=== PATIENT | female | born 1990 ===

== ENCOUNTER 2023-08-15 13:49 | Outpatient (AMB) | payer OTHER, SELFPAY ==
[2023-08-15 13:50] VITALS: BP 122/70; PULSE 73; O2SAT 97; BMI 27.2
--- NOTE | 2023-08-15 13:50 | MHC.PC.OV ---
Vital Signs 08/15/23 13:50 Height 5 ft 1 in Weight 144 lb BMI 27.2 BP 122/70 Blood Pressure Location Lt brachial Position Sitting Pulse 73 Pulse Source Pulse Oximeter Pulse Oximetry (%) 97 Oxygen Delivery Method Room Air Intake Visit Reasons: Physical exam, transfer from Dr. San Project Control Analyst Required: No Allergies No Known Allergies Allergy (Verified 08/15/23 14:04) Medication List - Last Reconciled 08/15/23 by JOLYNN Warner No Known Home Meds Tobacco use date assessed: 08/15/23 Dental Screening Dental Screen Date: 08/15/23 Did you have a dental visit in the last 12 months?: Yes Did you have a dental problem in the last 6 months where you did not have access to dental care?: No Was dental information given to patient?: Patient has dentist HPI Physical exam, transfer from Dr. San HPI Details Patient is a 33-year-old female who presents today for physical exam. Today we discussed patient's need for Pap smear, will refer. Patient also reports Nexplanon for the past 7 years, will refer to Gynecology for Nexplanon removal. Dental exam up-to-date. Does not see eye doctor, denies eye issues. Tdap in 2015. Patient is due for blood work. In addition, patient reports intermittent chronic low back pains that radiate to her right lower extremity for the past 14 years, back pain started after having spinal tap when she was - at the time did have meningitis. Also reports tingling in her right leg. Pain is worse with activity. Pain exacerbated about 5 days ago, reports taking [id number] ibuprofen intermittently with some improvement. No changes in bowel/bladder. Reports having physical therapy and chiropractor in the past with no improvement. Would like to hold off on pain management referral at this time. 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 Migraine with aura Irregular menstrual cycle Iron deficiency anemia Viral meningitis Lower back pain Surgical History No history of previous surgery Family History Father HTN (hypertension) Arthritis Asthma Mother HTN (hypertension) Migraine Diabetes mellitus Maternal Grandfather Liver cancer Maternal Aunt Breast cancer Social History Housing: Apartment Alcohol intake: never Patient Tobacco Use Status: Never used Tobacco Second Hand Smoke Exposure: No service: No Current occupational status: employed Gender identity: Female Cognitive needs: No Hearing needs: No Vision needs: No Female Reproductive History Menstrual Age of Menarche: 10 Questionnaire PHQ-9 Over the last 2 weeks, how often have you been bothered by any of the following problems? 1. Little interest or pleasure in doing things: not at all 2. Feeling down, depressed, or hopeless: not at all 3. Trouble falling or staying asleep, or sleeping too much: not at all 4. Feeling tired or having little energy: not at all 5. Poor appetite or overeating: not at all 6. Feeling bad about yourself - or that you are a failure or have let yourself or your family down: not at all 7. Trouble concentrating on things, such as reading the newspaper or watching television: not at all 8. Moving or speaking so slowly that other people could have noticed. Or the opposite - being so fidgety or restless that you have been moving around a lot more than usual: not at all 9. Thoughts that you would be better off or of hurting yourself in some way: not at all Total score: 0 Depression Screening Interpretation: Negative Depression Screening Done: Yes 78169 - PHQ-9 Billing: Yes Source: Developed by Drs. Fredy Cruz, Mariaa Chapman, Ezequiel Sadler and colleagues, with an educational dee from [employer] 1. Thrive Questionnaire Date Thrive assessed: 08/15/23 I am a: Patient What is your living situation today?: I have a steady place to live Within the past 12 months, did the food you bought not last and you didn't have the money to get more?: Never true Within the past 12 months, did you worry whether your food would run out before you got money to buy more?: Never true Do you have trouble paying for medicines?: No Do you have trouble getting transportation to medical appointments?: No Do you have trouble paying your heating and electricity bill?: No Do you have trouble taking care of your child, family member or friend?: No Do you have trouble with day-to-day activities such as bathing, preparing meals, shopping, managing finances, etc.?: No Are you currently unemployed and looking for a job?: No Are you interested in more education?: No Currently or been in a relationship where the following occur: no concerns reported AUDIT C Alcohol Use Questionnaire (AUDIT-C) 1. How often do you have a drink containing alcohol?: Never Total Score: 0 Score Reviewed/Action Taken: No EMMA-7 AMB Questionnaire EMMA-7 Date EMMA - 7 assessed: 08/15/23 Feeling nervous, anxious, or on edge: 0 = Not at all Not being able to stop or control worryin = Not at all Worrying too much about different things: 0 = Not at all Trouble relaxin = Not at all Being so restless that it is hard to sit still: 0 = Not at all Becoming easily annoyed or irritable: 0 = Not at all Feeling afraid as if something awful might happen: 0 = Not at all Total EMMA-7 score (0-4 normal; 5-9 mild; 10-14 moderate; 15-21 severe): 0 Source: Developed by Drs. Fredy Cruz, Mariaa Chapman, Ezequiel Sadler and colleagues, with an educational dee from [employer] 1. EMMA-7 Assessment Billing EMMA-7 Assessment Tool: EMMA-7 Assessment 14199 Review of Systems Const Denies body aches, Denies chills, Denies fever(s) and Denies headache(s) Eyes Denies change in vision ENT Denies dizziness, Denies otalgia, Denies headache(s), Denies nasal discharge, Denies sinus pain and Denies sore throat Card Denies chest pain, Denies edema, Denies lightheadedness and Denies dyspnea Resp Denies cough, Denies dyspnea and Denies wheezing GI Denies abdominal pain, Denies constipation, Denies diarrhea, Denies nausea and Denies vomiting Denies dysuria Musc Reports back pain, Denies myalgias, Denies numbness and Reports tingling Skin/Breast Denies rash Neuro Denies dizziness, Denies headache(s), Denies numbness and Reports tingling Aller/Immun Denies wheezing Physical exam (Primary Care) Vital Signs: Last Vital Signs Pulse 73 08/15/23 13:50 BP 122/70 08/15/23 13:50 Pulse Ox 97 08/15/23 13:50 Oxygen Delivery Method Room Air 08/15/23 13:50 BMI result Body Mass Index 27.2 Tobacco/Smoking Status: Tobacco use Status Tobacco use date assessed 08/15/23 08/15/23 13:53 Patient Tobacco Use Status Never used Tobacco 08/15/23 13:53 PHQ-9: PHQ-9 Score PHQ-9: Total score 0 08/15/23 13:53 Depression Screening Interpretation: Negative Thrive Assessment: Date of Thrive Assessment Date Thrive assessed 08/15/23 08/15/23 13:53 Currently or been in a relationship where the following occur: no concerns reported Const General: cooperative and no acute distress Orientation/consciousness: patient oriented x3 HENMT Head: Yes normocephalic and Yes atraumatic Ears: TM's normal bilaterally Face and sinus: Yes sinuses nontender Mouth: oropharynx normal and moist mucous membranes Throat: Yes posterior oropharynx normal Eyes General: appearance normal, both eyes and all related structures Pupils: Equal, round and reactive pupils present EOM: EOMs intact bilaterally Neck Neck: Yes normal visual inspection, Yes full ROM and Yes no lymphadenopathy Thyroid: Thyroid normal Resp Effort & Inspection: normal respiratory effort and able to speak in complete sentences Auscultation: clear to auscultation bilaterally, no crackles, no rales, no rhonchi and no wheezes Cardio Rate: regular rate Rhythm: regular rhythm Heart sounds: S1 normal heart sound present, S2 normal heart sound present and no murmurs GI Palpation (GI): Soft to palpation, not firm, nontender, no guarding, not rigid and no hepatosplenomegaly Auscultation: normal bowel sounds General: No CVA tenderness Back/Spine/Pelvis Back: No CVA tenderness Thoracic/Lumbar Spine: straight leg raise negative bilaterally, pain with thoraco-lumbar ROM, paraspinal muscle tenderness (Right lumbar aspect), No thoracic spinal tenderness and lumbar spinal tenderness Skin General skin exam: no rashes or lesions noted Neuro General: patient oriented x3 Cranial nerves: Yes Equal, round and reactive pupils present Gait exam (Neuro): Normal gait present Extrem General: Yes full ROM and No edema Office Procedures Flu Questionnaire Does the patient have a severe egg allergy?: No Does the patient have severe life threatening allergies?: No Does the patient have a fever or illness today?: No Has the patient ever had Guillain-Rockledge Syndrome?: No Has the patient ever had any past reaction to a flu shot?: No Immunizations flu vacc [id number] 6mos up(PF) 60 mcg(15 mcgx4)/0.5 mL IM syringe Performing Provider: JOLYNN Warner Performing Location[facility] Administered by: MARKUS Rojas on 08/15/23 13:57 Dose Route Admin Location Dispensed Lot Number Expiration Date NDC Shift Superintendent 0.5 mL IM Left Deltoid 0.5 mL [id number] 04/19/24 [id number] [employer] VIS Given Date VIS Provided VIS Publication Date 08/15/23 Single Vaccine 21 Eligibility Eligibility Date Funding Source Not [facility] Eligible 08/15/23 Private Assessment and Plan Assessment & Plan (1) Nexplanon in place: Code(s): Z97.5 - Presence of (intrauterine) contraceptive device Plan: Gynecology referral (2) Lower back pain: Code(s): M54.5 - Low back pain Plan: Will obtain lumbar spine x-ray Patient is not interested in physical therapy referral due to no improvement in the past Patient would like to hold off on pain management referral Will provide patient with ibuprofen 600 mg every 8 hours as needed Start tizanidine 2 mg every 8 hours p.r.n.-educated about drowsiness Encouraged heat/cold packs p.r.n. Signs and symptoms reviewed when to notify provider or seek medical attention (3) Cervical cancer screening: Code(s): Z12.4 - Encounter for screening for malignant neoplasm of cervix (4) Physical exam: Code(s): Z00.00 - Encounter for general adult medical examination without abnormal findings Plan: Repeat in 1 year Orders: Orders Vitamin D 25-OH Total Today Z00.00 - Encounter for general adult medical examination without abnormal findings TSH reflex Free T4 Today Z00.00 - Encounter for general adult medical examination without abnormal findings Influenza [id number] Immunization Today Z23 - Encounter for immunization Comprehensive Met. 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
== END 2023-08-15 14:22 | disposition home or self-care (01) ==
PROVIDERS: PCP Nurse Practitioner Family; Visit Provider Nurse Practitioner Family
DX: Z00.00 Encounter for general adult medical examination without abnormal findings (principal); M54.50 Low back pain, unspecified; Z23 Encounter for immunization; Z97.5 Presence of (intrauterine) contraceptive device
CPT/HCPCS: 90471; 90686; 99395

== ENCOUNTER 2023-10-06 08:27 | Emergency (ER) | payer OTHER, SELFPAY ==
--- NOTE | 2023-10-06 | ECG_ITS ---
Test Reason : pain/dyspnea Blood Pressure : / mmHG Vent. Rate : 052 BPM Atrial Rate : 052 BPM P-R Int : 148 ms QRS Dur : 088 ms QT Int : 416 ms P-R-T Axes : 048 052 030 degrees QTc Int : 386 ms Sinus bradycardia with sinus arrhythmia Otherwise normal ECG No previous ECGs available Referred By: Generic ED Physician Electronically Signed By:Josue Ramírez
--- NOTE | ~2023-10-06 | XR_ITS ---
EXAMINATION: XR CHEST CLINICAL INFORMATION: Cough. COMPARISON: None available. TECHNIQUE: Frontal view of the chest was obtained. FINDINGS: The lungs are well-expanded and clear. The heart size and pulmonary vascularity is normal. No gross bony abnormality seen. There is minimal scoliosis dorsal spine. XR/XR chest 1V IMPRESSION: No acute cardiopulmonary process seen.
[2023-10-06 08:34] VITALS: BP 116/56; PULSE 54; RESP 16; TEMP 36.9; O2SAT 97; BMI 27.4
[2023-10-06 09:47] LABS: IDNOW Serial# 08D9AD1C; Strep A Nucleic Acid Negative (Negative)
[2023-10-06 10:15] LABS: Influenza A PCR NEGATIVE (Negative); Influenza B PCR NEGATIVE (Negative); Resp Syncy Virus RNA Qual PCR NEGATIVE (Negative); SARS COV2 PCR INHOUSE NEGATIVE (Negative)
[2023-10-06] MEDS: dexAMETHasone sod phosphate 4 MG/ML VIAL 6 MG IVPUSH (11:21)
--- NOTE | 2023-10-06 11:26 | ED.URI ---
HPI - URI/Sore Throat General Chief Complaint: Upper Respiratory Symptoms Stated Complaint: Diff breathing/Loss of appetite Time Seen by Provider: 10/06/23 09:19 Source: patient Mode of arrival: ambulatory Limitations: no limitations History of Present Illness HPI Narrative: 33-year-old female with no significant pmhx presents to the ED today with a complaint of nasal congestion, cough, sore throat x1 week. Reports cough is productive of yellow-green sputum endorses post-tussive vomiting. Reports pain on swallowing however no difficulty swallowing States that she has been taking Tylenol ibuprofen without relief. No documented fever. Denies sick contacts. Denies fever, chills, headache, ear or eye pain, chest pain, shortness of breath, wheezing, anorexia, nausea or vomiting, rash, abdominal or flank pain. Denies recent travel. Related Data Previous Rx's Medication Instructions Recorded ibuprofen 600 mg tablet 600 mg PO Q8H PRN pain #30 tabs 08/15/23 tizanidine 2 mg tablet 2 mg PO Q8H PRN muscle spasticity 08/15/23 #14 tabs azithromycin 250 mg tablet See Rx Instructions PO .COMPLEX #6 10/06/23 (Zithromax Z-El) tabs benzonatate 100 mg capsule 100 mg PO BID PRN cough #14 caps 10/06/23 prednisone 20 mg tablet 20 mg PO DAILY 5 days #5 tabs 10/06/23 Allergies Allergy/AdvReac Type Severity Reaction Status Date / Time No Known Allergies Allergy Verified 10/06/23 08:33 Review of Systems Review of Systems: Constitutional: No fever, chills, fatigue, night sweats, weight changes ENT/Mouth: No ear pain, hearing loss, +nasal congestion, No sinus pain, rhinorrhea, +sore throat Eyes: No eye pain, swelling, redness, vision changes, discharge Cardio: No chest pain, palpitations, MATHIS, orthopnea, peripheral edema Pulm: No SOB, +cough, +sputum, No wheezing, dyspnea, hemoptysis GI: No nausea, vomiting, hematemesis, abdominal pain, diarrhea, constipation, hematochezia, melena : No irregular bleeding, dysuria, frequency, urgency, hesitancy, hematuria, flank pain, urinary flow changes, urinary incontinence or retention MSK: No back pain, neck pain, joint pain, myalgias Skin: No lesions, rashes Neuro: No weakness, numbness, paresthesias, LOC, dizziness, headache All other systems reviewed and are negative. FORMERLY [facility], [facility] Past Medical History Attestation statement: The following information was validated with the patient. 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 Migraine with aura Irregular menstrual cycle Iron deficiency anemia Viral meningitis Lower back pain Surgical History No history of previous surgery Family History Family History Father HTN (hypertension) Arthritis Asthma Mother HTN (hypertension) Migraine Diabetes mellitus Maternal Grandfather Liver cancer Maternal Aunt Breast cancer Social History Social History Housing: Apartment Alcohol intake: never Patient Tobacco Use Status: Never used Tobacco Second Hand Smoke Exposure: No Advance Directives: No Advance Directives Information Provided: Yes service: No Current occupational status: employed Gender identity: Female Cognitive needs: No Hearing needs: No Vision needs: No Physical Exam Vital Signs: Vital Signs: Last Vital Signs Temp 98.5 F 10/06/23 08:34 Pulse 86 10/06/23 11:49 Resp 16 10/06/23 11:49 BP 116/56 L 10/06/23 08:34 Pulse Ox 100 10/06/23 11:49 O2 Del Method Room Air 10/06/23 11:49 BMI result Body Mass Index 27.4 Vital signs stable, afebrile. Const: General: cooperative, healthy appearing, comfortable, no acute distress, alert and awake Orientation/consciousness: patient oriented x3 Limitations: no limitations HEENT: Other: + posterior oropharynx erythematous. No edema. No tonsillar exudates or peritonsillar masses. Uvula is midline. Controlling secretions and speaking complete sentences. Head: Yes normal to inspection Ears: hearing grossly normal bilaterally, external ears normal, TM's normal bilaterally, EAC's normal, mastoids normal and no periauricular adenopathy General nose exam: Normal external nose present, Normal nares present and No nasal discharge present Face and sinus: Yes normal facial exam and Yes sinuses nontender Eyes: General: appearance normal, both eyes and all related structures Eyelids: Yes eyelids normal Conjunctivae: conjunctivae normal Pupils: Equal, round and reactive pupils present EOM: EOMs intact bilaterally Neck: Neck: Yes normal visual inspection, Yes full ROM, Yes no lymphadenopathy and Yes no meningeal signs Chest: Chest palpation & inspection: normal inspection of the chest and normal palpation of entire chest wall Resp: Effort & Inspection: normal respiratory effort, able to speak in complete sentences, Actively coughing, no respiratory distress, no tripod positioning and no use of accessory muscles Auscultation: clear to auscultation bilaterally, no rhonchi and no wheezes Cardio: Rate: regular rate and tachycardic Rhythm: regular rhythm Peripheral pulses: Peripheral pulses 2+ throughout GI: Inspection: Yes normal to inspection Palpation (GI): Soft to palpation, nontender, no guarding and no splenomegaly Auscultation: normal bowel sounds : General: Yes no CVA tenderness Back/Spine/Pelvis: Back: no CVA tenderness Skin: General skin exam: no rashes or lesions noted Neuro: General: patient oriented x3, gait normal, moves all extremities and no meningeal signs Cranial nerves: Yes Equal, round and reactive pupils present Extrem: General: Yes normal to inspection and Yes full ROM Course Course Course Narrative: Patient negative for COVID, flu, RSV, strep throat. Symptoms are consistent with bronchitis. She is generally well-appearing. Will give her dose of Decadron in ED. No need for breathing treatment at this time as patient's lungs are clear to auscultation. Will send patient home with jacob Blanchard Tessalon Perles. Educated her on symptomatic treatment. Patient has remained stable throughout ED visit today. Discussed strict return precautions. All questions answered at this time. Patient is agreeable with disposition and stable for discharge. Medications Administered Discontinued Medications Generic Name Dose Route Start Last Admin Trade Name Freq PRN Reason Stop Dose Admin Dexamethasone Sodium Phosphate 6 mg 10/06/23 11:13 10/06/23 11:21 Dexamethasone Sod Phosphate 4 Mg/Ml Vial IVPUSH 10/06/23 11:14 6 mg ONCE ONE Administration Medical Decision Making Medical Decision Making MDM Narrative: 33-year-old female with no significant pmhx presents to the ED today with a complaint of nasal congestion, cough, sore throat x1 week. Vital signs stable, afebrile. Patient nontoxic appearing and in no acute distress. Bilateral EACs and TMs WNL. Posterior oropharynx erythematous, no edema. No tonsillar exudates. No peritonsillar masses. Uvula midline. Controlling secretions speaking complete sentences. Lungs CTA bilaterally, no wheezes. No cervical lymphadenopathy. Ambulating with steady gait. Clinical concern for viral syndrome, strep throat, pneumonia, bronchitis. Unlikely mono, CLINICAL INFORMATICS DIRECTOR, retropharyngeal abscess, epiglottitis, PE, pneumothorax. Plan for serology and chest x-ray. Differential Diagnosis Differential Diagnoses: The differential diagnosis associated with the presentation includes As above. Admission/Observation Not indicated. Lab Data MDM Lab Attestation statement: I reviewed the patient's lab results. As above. Labs: Lab Results 10/06/23 Range/Units 09:29 Influenza Type A (PCR) NEGATIVE (Negative) Influenza Type B (PCR) NEGATIVE (Negative) RSV RNA Qual (PCR) NEGATIVE (Negative) SARS-CoV-2 RNA (RT-PCR) NEGATIVE (Negative) S. pyogenes GrpA TERRY Negative (Negative) Independent Interpretation I performed an independent interpretation of an: EKG and Plain X-Ray Interpretation: EKG showing sinus bradycardia with sinus arrhythmia, rate of 52 beats per minute, QT 416, no acute ischemic changes or ST elevations. Chest x-ray without consolidation or infiltrate, agree with radiologist's interpretation. Radiology Impression Discussion of test interpretation with radiology: I have reviewed the radiologist's reading. Radiologist Impression: XR chest 1V IMPRESSION: No acute cardiopulmonary process seen. External Record Review External record reviewed: Inpatient record Prescription Management I considered prescription management with: Antibiotic and Other (Steroid, antitussive) Critical Care Time Critical Care Time Critical Care Time: No Discharge Plan Discharge Clinical Impression: Bronchitis Patient Disposition: Home, Self-Care Instructions: Acute Bronchitis (ED) Additional Instructions: You tested negative for COVID, flu, RSV, strep throat today. You likely have bronchitis. Your chest x-ray was normal. You were given a dose of Decadron in the emergency department today. Azithromycin is a antibiotic that has been sent to your pharmacy. Take this over the next 5 days as directed. Do not miss any doses or stop taking these early as this may cause symptoms to return or worsen. Prednisone has been sent to your pharmacy. Take this over the next 5 days as directed. Zoya Cruz have been sent to your pharmacy. You may take these as needed for cough. Follow-up with your primary care provider. If you do not have a PCP, referral has been provided to. If symptoms persist or worsen please return to the emergency department. In the case of an emergency call 911. Prescriptions: New azithromycin [Zithromax Z-El] 250 mg tablet See Rx Instructions .ROUTE .COMPLEX Qty: 6 0RF Rx Instructions: For 250 mg dose pack: take 500 mg today (day 1), then 250 mg for 4 days (days 2-5) prednisone 20 mg tablet 20 mg PO DAILY 5 Days Qty: 5 0RF benzonatate 100 mg capsule 100 mg PO BID PRN (Reason: cough) Qty: 14 0RF No Action tizanidine 2 mg tablet 2 mg PO Q8H PRN (Reason: muscle spasticity) Qty: 14 0RF ibuprofen 600 mg tablet 600 mg PO Q8H PRN (Reason: pain) Qty: 30 0RF Referrals: [facility] [place] [facility] [Provider Group] Monica Paula FNP [Primary Care Provider] - Interventions: ED Discharge Assessment Last Done: 10/06/23 11:49 Discharge Date/Time: 10/06/23 11:50
[2023-10-06 11:49] VITALS: PULSE 86; RESP 16; O2SAT 100
--- NOTE | 2023-10-06 11:49 | PC.NURSE ---
pt medicated per mar, vss.
== END 2023-10-06 11:50 | disposition home or self-care (01) ==
PROVIDERS: Emergency Provider Emergency Medicine; PCP Nurse Practitioner Family
DX: J40 Bronchitis, not specified as acute or chronic (principal); R05.9 Cough, unspecified; D50.9 Iron deficiency anemia, unspecified; Z20.822 Contact with and (suspected) exposure to COVID-19; Z20.828 Contact with and (suspected) exposure to other viral communicable diseases
CPT/HCPCS: 0241U; 71045; 87651; 93005; 96374; 99283; 99284; J1100

== ENCOUNTER → 2023-10-06 09:23 | Outpatient (BNV) | payer OTHER, SELFPAY | PROVIDERS: Emergency Provider Emergency Medicine; PCP Nurse Practitioner Family; Visit Provider Internal Medicine Cardiovascular Disease | DX: R00.1 Bradycardia, unspecified (principal) | CPT/HCPCS: 93010 ==

== ENCOUNTER 2024-01-08 09:16 | Outpatient (REF) | payer OTHER, SELFPAY ==
[2024-01-09 03:05] LABS: CT PCR NOT DETECTED (Not Detect.); NG PCR NOT DETECTED (Not Detect.)
[2024-01-09 15:42] LABS: BV Int Neg Control Negative (Negative); BV Int Pos Control Positive (Positive)
[2024-01-14 12:38] LABS: HPV mRNA E6/E7 rflx Not Detected (Not Detected)
== END 2024-01-08 09:17 | disposition home or self-care (01) ==
LOC: HO.LNP 09:16
PROVIDERS: PCP Nurse Practitioner Family; Visit Provider Advanced Practice Midwife
DX: Z01.419 Encounter for gynecological examination (general) (routine) without abnormal findings (principal); Z11.51 Encounter for screening for human papillomavirus (HPV); M54.50 Low back pain, unspecified; Z20.2 Contact with and (suspected) exposure to infections with a predominantly sexual mode of transmission; Z97.5 Presence of (intrauterine) contraceptive device
CPT/HCPCS: 0353U; 87480; 87510; 87624; 87660; 88142; 99385

== ENCOUNTER 2024-01-08 09:16 | Outpatient (AMB) | payer OTHER, SELFPAY ==
--- NOTE | 2024-01-08 10:57 | A.OFFVIS_ITS ---
Intake Vital Signs 01/08/24 10:58 Height 5 ft 1 in Weight 142 lb BMI 26.8 BP 112/70 Intake Visit Reasons: New patient Annual Intake Note: would like nexplanon exchange Aba Therapist Required: No Information Interpreted: non-clinical & clinical Private Branch Exchange Service Adviser: Private Branch Exchange Service Adviser Present (Aidyn) Allergies No Known Allergies Allergy (Verified 01/08/24 10:59) Medication List - Last Reconciled 01/08/24 by Trish Cruz CNM etonogestrel (Nexplanon) subdermal ibuprofen 600 mg PO Q8H PRN tizanidine 2 mg PO Q8H PRN Is last menstrual period known: Yes Last menstrual period: 12/23/23 Post menopausal: No HPI New patient Annual HPI Details Patient is here for a new compliance officer exam it has been a number of years since she has been seen for compliance officer care she thinks she had the Nexplanon inserted maybe 14 years ago in his clinic in [place] that has since closed. She knows it has not been working for her. She would like it replaced she has not been using anything to not get . She has had 2 children vaginally 1 at [facility] in [address] [place] [address] her 1st baby was 9 lb and did tear her. She could not remember when her last Pap smear was but it was some number of years ago and it was eventually found in the system in 2017. She gets what she calls are irregular periods because they do not come exactly when she expects them but they come about once a month and they have been doing so for years. She also calls them irregular because they will start with a little bit of spotting for a few days 1st and then proceed to a regular full menses. she thinks she lost a little weight with the Nexplanon, and her bleeding was irregular at the start but then became more regular. The patient was very nervous about the exam and later shared that her previous exam had been very painful so she was very tense. 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 Migraine with aura Irregular menstrual cycle Iron deficiency anemia Viral meningitis Lower back pain Surgical History No history of previous surgery Family History Father HTN (hypertension) Arthritis Asthma Mother HTN (hypertension) Migraine Diabetes mellitus Maternal Grandfather Liver cancer Maternal Aunt Breast cancer Social History Housing: Apartment Alcohol intake: never Patient Tobacco Use Status: Never used Tobacco Second Hand Smoke Exposure: No service: No Current occupational status: employed Gender identity: Female Cognitive needs: No Hearing needs: No Vision needs: No Female Reproductive History Menstrual Age of Menarche: 10 Duration of menses: other Date of last menstrual period: 12/23/23 control method: implanted Total pregnancies: 2 Full term: 2 Number of Living Children: 2 Date of last pap smear: 12/06/16 (unsatisfactory) Physical Exam Vital Signs: Last Vital Signs BP 112/70 01/08/24 10:58 BMI result Body Mass Index 26.8 Const Other: Nexplanon is extremely easy to feel in the left arm. General: healthy appearing, comfortable, no acute distress, well developed and alert Nutritional Appearance: average body habitus Orientation/consciousness: patient oriented x3 Limitations: no limitations HEENT Head: Yes normocephalic Neck Neck: Yes normal visual inspection Chest Chest palpation & inspection: normal inspection of the chest Breast/axilla inspection: normal inspection of the breasts and normal inspection of the axillae Breast/axilla palpation: normal palpation of the breasts and normal palpation of the axillae Resp Effort & Inspection: normal respiratory effort GI Inspection: Yes normal to inspection, No Abdominal wall edema and No distended Palpation (GI): Soft to palpation and nontender Other: Normal speculum exam and vaginal exam evidence of a previous vaginal laceration and repair. Vagina pink and moist cervix is multiparous pink smooth normal appearing with normal appearing white discharge uterus is small firm midposition to anteverted nontender adnexa nontender very good tone with Kegel. General: Yes bladder normal to palpation External Female Exam: normal external appearance and normal appearance of the urethra Speculum Exam - Vagina: normal appearance of the vagina, normal palpation and normal vaginal discharge Speculum Exam - Cervix: normal appearance of the cervix, normal palpation and nontender Bimanual exam- vagina & uterus: normal bimanual exam, normal palpation, uterine size normal, bladder normal to palpation, consistency normal, normal palpation, uterine mobility normal, uterine shape normal, No Cervical tenderness present, non-tender and no cervical motion tenderness Bimanual Exam- Adnexa, other: normal adnexae, no masses, normal and No adnexal tenderness Neuro General: patient oriented x3 Assessment & Plan Assessment & Plan (1) Nexplanon in place: Comment: She thinks it has been in 14 years she knows it has not been working recently she wants replacement Code(s): Z97.5 - Presence of (intrauterine) contraceptive device (2) Lower back pain: Code(s): M54.5 - Low back pain (3) Cervical cancer screening: Comment: Last Pap 2017 Pap done 01/08/2024. Code(s): Z12.4 - Encounter for screening for malignant neoplasm of cervix (4) Well woman exam with routine gynecological exam: Code(s): Z01.419 - Encounter for gynecological examination (general) (routine) without abnormal findings Plan -----Discussed in this visit the following: healthy balanced diet, regular and consistent exercise, getting recommended health screens, doing the best she can for her particular health concerns, kegel exercises, pap smear screening and followup recommendations, mammography screening and SBE, normal changes in cycles in her life stage--- . She wants to replace the Nexplanon discussed why I will only insert it at the beginning of a period in the rationale in terms of lining up with her cycle and minimizing bleeding side effects later on discussed that even though she did not gain weight with the 1st 1 sometimes things happen differently as we get older so to be watchful about that. She signed the consent form to order it and when it arrives and she is notified whenever she gets her next menses after that is when we would want to insert it but I want her to call when she has a full period, And not count the spotting. We will see her for Nexplanon replacement with her menses. Also recommend keeping a very close eye on her cycle from here on out including how she feels at different times in her. And her mucus changes because she has been noticing a white discharge and I educated her about the changes of discharge throughout the cycle and what to be aware of because it will all change once she has a new active fully loaded Nexplanon in again. Orders: Orders Bacterial Vaginosis Panel Today Z20.2 - Contact with and (suspected) exposure to infections with a predominantly sexual mode of transmission Pap Smear Today Z12.4 - Encounter for screening for malignant neoplasm of cervix CT NG by PCR Today Z20.2 - Contact with and (suspected) exposure to infections with a predominantly sexual mode of transmission Coding Level of Care Code New Pt Prev Care 18-39yr([id number] Z97.5 Lower back pain M54.5 Cervical cancer screening Z12.4 Well woman exam with routine gynecological exam Z01.419
[2024-01-08 10:58] VITALS: BP 112/70; BMI 26.8
== END 2024-01-08 11:56 | disposition home or self-care (01) ==
PROVIDERS: PCP Nurse Practitioner Family; Visit Provider Advanced Practice Midwife
DX: Z01.419 Encounter for gynecological examination (general) (routine) without abnormal findings (principal); M54.50 Low back pain, unspecified; Z97.5 Presence of (intrauterine) contraceptive device
CPT/HCPCS: 99385

== ENCOUNTER 2024-01-23 12:26 | Emergency (ER) | payer OTHER, SELFPAY ==
--- NOTE | ~2024-01-23 | CT_ITS ---
EXAMINATION: CT HEAD W/O IV CONTRAST CT CERVICAL SPINE W/O IV CONTRAST CLINICAL INFORMATION: Recent head strike and dizziness. COMPARISON: None TECHNIQUE: Head - Contiguous axial imaging of the head was performed from the skull base to the vertex without the administration of intravenous contrast, and axial images are reconstructed at 2 mm and 5 mm slice thickness. Cervical spine - A volumetric, helical CT acquisition of the cervical spine was obtained without contrast; in addition to the standard set of axial images, multiplanar reformatted images were provided in the coronal and sagittal imaging planes. This CT examination was performed using dose optimization techniques as appropriate, variously including the following: *Automated exposure control *Adjustment of mA and/or kV according to patient size (this includes techniques or standardized protocols for targeted exams where dose is matched to indication/reason for exam; i.e. extremities or head) *Use of iterative reconstruction technique DLP: 895 mGy-cm (total) FINDINGS: HEAD: No acute intracranial findings. Tidwell to white matter differentiation is preserved. No evidence of intracranial hemorrhage, major vascular territory infarction, focal mass effect or midline shift. The ventricles have normal size and configuration. No hydrocephalus or extra-axial fluid collections. The calvarium is intact and the visualized paranasal sinuses, mastoid air cells and middle ear cavities are clear. The temporomandibular joints are intact. The orbits and globes are unremarkable. CERVICAL SPINE: There is lack of lordotic curvature of the cervical spine. The craniocervical junction is normal. The occipital condyles, dens and atlantodental articulation are intact. The vertebral body heights and alignment are maintained. No fractures in the anterior or posterior elements. No prevertebral soft tissue edema. The disc spaces are preserved. The facet joints are normal. No stenosis of the central spinal canal or neural foramina. No hematoma in the visualized neck. Thyroid gland is normal. The examined lung apices are clear. CT/CT cervical spine wo IV con IMPRESSION: * No acute intracranial pathology. * No fracture or malalignment in the cervical spine.
--- NOTE | ~2024-01-23 | XR_ITS ---
EXAMINATION: XR THORACIC SPINE XR LUMBAR SPINE CLINICAL INFORMATION: Acute on chronic right-sided back pain. COMPARISON: Lumbar spine radiographs from 03/11/2018. Radiograph of chest from 10/06/2023. TECHNIQUE: Thoracic spine, 3 views Lumbar spine, 3 views FINDINGS: Thoracic spine: There are 12 rib-bearing thoracic vertebra. The vertebra have normal density, height and alignment. The anterior and posterior elements are intact. The disc spaces are maintained. There is minimal dextrocurvature of the thoracic spine. Soft tissues are unremarkable. Lumbar spine: There are 5 nonrib-bearing vertebra of the lumbar spine. The vertebral body heights and alignment are normal. 5 degrees of dextrocurvature of the lumbar spine is measured from the superior endplate of T12 to the inferior endplate of L3. No evidence of pars interarticularis defect or compression fracture. Sacrum and sacroiliac joints are unremarkable. XR/XR thoracic spine 2V IMPRESSION: There are no significant radiographic findings in the thoracic or lumbar spine. The disc spaces are well-preserved throughout the spine. No evidence of arthritic disease, fracture or malalignment.
--- NOTE | ~2024-01-23 | XR_ITS ---
EXAMINATION: XR THORACIC SPINE XR LUMBAR SPINE CLINICAL INFORMATION: Acute on chronic right-sided back pain. COMPARISON: Lumbar spine radiographs from 03/11/2018. Radiograph of chest from 10/06/2023. TECHNIQUE: Thoracic spine, 3 views Lumbar spine, 3 views FINDINGS: Thoracic spine: There are 12 rib-bearing thoracic vertebra. The vertebra have normal density, height and alignment. The anterior and posterior elements are intact. The disc spaces are maintained. There is minimal dextrocurvature of the thoracic spine. Soft tissues are unremarkable. Lumbar spine: There are 5 nonrib-bearing vertebra of the lumbar spine. The vertebral body heights and alignment are normal. 5 degrees of dextrocurvature of the lumbar spine is measured from the superior endplate of T12 to the inferior endplate of L3. No evidence of pars interarticularis defect or compression fracture. Sacrum and sacroiliac joints are unremarkable. XR/XR lumbar spine 2-3V IMPRESSION: There are no significant radiographic findings in the thoracic or lumbar spine. The disc spaces are well-preserved throughout the spine. No evidence of arthritic disease, fracture or malalignment.
[2024-01-23 12:44] VITALS: BP 124/73; PULSE 53; RESP 28; TEMP 36.6; O2SAT 97; BMI 26.0
--- NOTE | 2024-01-23 12:44 | ED_ITS ---
HPI - General Adult General Chief complaint: Head Injury Stated complaint: head inj at home 01/19 Time Seen by Provider: 01/23/24 13:12 Source: patient Mode of arrival: ambulatory Limitations: no limitations History of Present Illness HPI narrative: 33-year-old female presents the ER for evaluation of headache and fatigue. She states 3 days ago she was bending down to feed her cats when she hit her head on the side of the abdomen. She did not lose consciousness at the time. She states she hit the top of her head very hard and has been having significant pain and headaches since then. She reports blurred vision. She has not taken any medications for the headache. She denies any confusion but has been more fatigued lately. complaint: Headache Onset (ago): day(s) (3) Location: head Radiation: non-radiation Severity: severe Severity scale (1-10): 9 Quality: other (throbbing) Pain Consistency: constant Relieving factors: none Exacerbating factors: movement Associated symptoms: malaise Treatments prior to arrival: none Related Data Home Medications ?Medication ?Instructions ?Recorded ?Confirmed etonogestrel 68 mg subdermal subdermal 01/08/24 01/08/24 implant (Nexplanon) Previous Rx's ?Medication ?Instructions ?Recorded ibuprofen 600 mg tablet 600 mg PO Q8H PRN pain #30 tabs 08/15/23 tizanidine 2 mg tablet 2 mg PO Q8H PRN muscle spasticity 08/15/23 #14 tabs metronidazole 0.75 % (37.5 mg/5 1 appful vaginal BEDTIME 5 days 01/10/24 gram) vaginal gel #70 grams Allergies Allergy/AdvReac Type Severity Reaction Status Date / Time No Known Allergies Allergy Verified 01/23/24 12:46 Review of Systems Review of Systems: Yes all other systems are reviewed and are negative PMFSH Past Medical History Medical History control counseling 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 Migraine with aura Irregular menstrual cycle Iron deficiency anemia Viral meningitis Lower back pain Surgical History No history of previous surgery Family History Family History Father HTN (hypertension) Arthritis Asthma Mother HTN (hypertension) Migraine Diabetes mellitus Maternal Grandfather Liver cancer Maternal Aunt Breast cancer Social History Social History Housing: Apartment Alcohol intake: never Patient Tobacco Use Status: Never used Tobacco Second Hand Smoke Exposure: No Advance Directives: No Advance Directives Information Provided: No Patient : No service: No Current occupational status: employed Gender identity: Female Cognitive needs: No Hearing needs: No Vision needs: No Physical Exam ED Vital Signs: Vital Signs - 24 hr 01/23/24 12:44 01/23/24 15:54 Temperature 98 F 98.2 F Pulse Rate 53 58 Respiratory Rate 28 H 18 Blood Pressure 124/73 116/81 Pulse Oximetry 97 98 Oxygen Delivery Method Room Air Room Air BMI result Body Mass Index 26.0 Appearance: Alert. Oriented X3. No acute distress. Head: normocephalic, atraumatic. tenderness over the right parietal area without any palpable swelling, no palpable deformity in the skull. Eyes: Pupils equal, round and reactive to light. ENT: Pharynx normal. No tonsillar swelling or exudate. Normal-appearing tympanic membranes bilaterally. Neck: Normal inspection. Neck supple. No midline tenderness. Normal range of motion. CVS: Normal heart rate and rhythm. Pulses normal. Respiratory: No respiratory distress. Breath sounds normal. Skin: Skin warm and dry. Normal skin color. Normal skin turgor. No rashes. Extremities: No lower extremity edema. No joint swelling. Neuro/psych: Oriented X 3. No motor deficit. No sensory deficit. CN II-XII intact. Normal speech and cognition. Course Course Course Narrative: RME:?33 yo female here w/ dizziness, head throbbing, increased fatigue, and acute on chronic back pain extending from right c spine to right lumbar s/p head strike 3 days ago. she was bending down to brass pickler a cat bowl from under a chair when she hit the right side of her head on a heater. denies LOC. no OTC meds for this at home. denies N/V, vision changes. exam nonfocal. no palpable skull fracture. imaging ordered. Full HPI, ROS and PE to be performed by the primary ED provider. Medications Administered Discontinued Medications Generic Name Dose Route Start Last Admin Trade Name Freq PRN Reason Stop Dose Admin Acetaminophen/Butalbital/Caffeine 1 tab 01/23/24 15:23 01/23/24 15:29 Butalb/Acetamin/Caff 50/325/40 Tablet PO 01/23/24 15:24 1 tab ONCE ONE Administration Ibuprofen 600 mg 01/23/24 15:23 01/23/24 15:29 Ibuprofen 600 Mg Tablet PO 01/23/24 15:24 600 mg ONCE ONE Administration Medical Decision Making Medical Decision Making MDM Narrative: 33-year-old female presenting to the ER for evaluation of a headache after she hit her head against a heater on Saturday. No LOC. Not on anticoagulation. Neuro exam is nonfocal. She states her headache is worse with the light. She has blurred vision. No history of migraines. She had a CT scan today that was unremarkable. She was treated with Fioricet with improvement in her headache today. She would like to go home She may have mild concussion symptoms. She states she went to work after the event and her symptoms got worse. We discussed the management of concussions including mental and physical rest. Avoiding screen time. Symptomatic management with Motrin, Tylenol. She will follow up with her primary care doctor. Differential Diagnosis Differential Diagnoses: The differential diagnosis associated with the presentation includes concussion, closed head injury, low clinical suspicion for SAH /ICH Independent Interpretation I performed an independent interpretation of an: CT Scan Interpretation: CT head without edema or bleed Radiology Impression Discussion of test interpretation with radiology: I have reviewed the radiologist's reading. Radiologist Impression: EXAMINATION: CT HEAD W/O IV CONTRAST CT CERVICAL SPINE W/O IV CONTRAST CLINICAL INFORMATION: Recent head strike and dizziness. COMPARISON: None TECHNIQUE: Head - Contiguous axial imaging of the head was performed from the skull base to the vertex without the administration of intravenous contrast, and axial images are reconstructed at 2 mm and 5 mm slice thickness. Cervical spine - A volumetric, helical CT acquisition of the cervical spine was obtained without contrast; in addition to the standard set of axial images, multiplanar reformatted images were provided in the coronal and sagittal imaging planes. This CT examination was performed using dose optimization techniques as appropriate, variously including the following: *Automated exposure control *Adjustment of mA and/or kV according to patient size (this includes techniques or standardized protocols for targeted exams where dose is matched to indication/reason for exam; i.e. extremities or head) *Use of iterative reconstruction technique DLP: 895 mGy-cm (total) FINDINGS: HEAD: No acute intracranial findings. T[place]well to white matter differentiation is preserved. No evidence of intracranial hemorrhage, major vascular territory infarction, focal mass effect or midline shift. The ventricles have normal size and configuration. No hydrocephalus or extra-axial fluid collections. The calvarium is intact and the visualized paranasal sinuses, mastoid air cells and middle ear cavities are clear. The temporomandibular joints are intact. The orbits and globes are unremarkable. CERVICAL SPINE: There is lack of lordotic curvature of the cervical spine. The craniocervical junction is normal. The occipital condyles, dens and atlantodental articulation are intact. The vertebral body heights and alignment are maintained. No fractures in the anterior or posterior elements. No prevertebral soft tissue edema. The disc spaces are preserved. The facet joints are normal. No stenosis of the central spinal canal or neural foramina. No hematoma in the visualized neck. Thyroid gland is normal. The examined lung apices are clear. CT/CT head/brain wo IV con IMPRESSION: * No acute intracranial pathology. * No fracture or malalignment in the cervical spine. External Record Review External record reviewed: Outpatient record and Prior outpatient labs Prescription Management I considered prescription management with: Pain Medication Critical Care Time Critical Care Time Critical Care Time: No Discharge Plan Discharge Clinical Impression: Closed head injury Patient Disposition: Home, Self-Care Instructions: Head Injury (ED) Additional Instructions: Your CT scans today were normal. You may have a mild concussion. Treatment is rest. Avoid screen time. Recommend [id number] ibuprofen or acetaminophen as needed for headache and pain. Rest and drink plenty of fluids. Follow-up with your primary care doctor. If you develop new or worsening symptoms call 911 or come back to the ER for further evaluation. Prescriptions: No Action metronidazole 0.75 % (37.5mg/5 gram) gel 1 appful vaginal BEDTIME 5 Days Qty: 70 0RF tizanidine 2 mg tablet 2 mg PO Q8H PRN (Reason: muscle spasticity) Qty: 14 0RF ibuprofen 600 mg tablet 600 mg PO Q8H PRN (Reason: pain) Qty: 30 0RF Nexplanon 68 mg implant subdermal Print Language: Georgian
[2024-01-23] MEDS: Ibuprofen 600 MG TABLET PO (15:29)
[2024-01-23] MEDS: Butalb/Acetamin/Caff 50/325/40 TABLET 1 TAB PO (15:29)
[2024-01-23 15:54] VITALS: BP 116/81; PULSE 58; RESP 18; TEMP 36.8; O2SAT 98
[2024-01-23 16:18] VITALS: BP 116/81; PULSE 58; RESP 18; TEMP 36.8; O2SAT 98
== END 2024-01-23 16:19 | disposition home or self-care (01) ==
PROVIDERS: Emergency Provider Emergency Medicine
DX: S09.90XA Unspecified injury of head, initial encounter (principal); M54.2 Cervicalgia; M54.50 Low back pain, unspecified; R10.9 Unspecified abdominal pain; R53.83 Other fatigue; M54.6 Pain in thoracic spine; Y29.XXXA Contact with blunt object, undetermined intent, initial encounter; Y93.9 Activity, unspecified; Y92.009 Unspecified place in unspecified non-institutional (private) residence as the place of occurrence of the external cause; Y99.8 Other external cause status
CPT/HCPCS: 70450; 72070; 72100; 72125; 99284

== ENCOUNTER 2024-05-18 17:05 | Emergency (ER) | payer OTHER, SELFPAY ==
[2024-05-18 17:41] VITALS: BP 122/81; PULSE 64; RESP 16; TEMP 36.3; O2SAT 97; BMI 27.3
--- NOTE | 2024-05-18 17:41 | ED_ITS ---
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 No change in vision no other injury MD chief complaint: eye injury Onset (ago): hour(s) (several) Onset description: sudden Duration: constant Location: right eye Eye Symptoms: burning, pain, foreign body sensation and photophobia Place: work Mechanism: direct trauma Severity: severe If Pain, Quality: burning and aching Context: trauma Associated symptoms: none Treatments Prior to Arrival: none Related Data Home Medications ?Medication ?Instructions ?Recorded ?Confirmed etonogestrel 68 mg subdermal subdermal 01/08/24 01/08/24 implant (Nexplanon) Previous Rx's ?Medication ?Instructions ?Recorded ibuprofen 600 mg tablet 600 mg PO Q8H PRN pain #30 tabs 08/15/23 tizanidine 2 mg tablet 2 mg PO Q8H PRN muscle spasticity 08/15/23 #14 tabs metronidazole 0.75 % (37.5 mg/5 1 appful vaginal BEDTIME 5 days 01/10/24 gram) vaginal gel #70 grams erythromycin 5 mg/gram (0.5 %) eye 0.5 inch ophthalmic (eye) BID 7 05/18/24 ointment days #3.5 grams oxycodone 5 mg tablet 5 mg PO Q6H PRN pain #12 tabs 05/18/24 Allergies Allergy/AdvReac Type Severity Reaction Status Date / Time No Known Allergies Allergy Verified 05/18/24 17:43 Review of Systems Review of Systems: Constitutional : No Fever, No Chills, No Fatigue ENT/Mouth : No sore throat, No Rhinorrhea Eyes: pos Eye Pain, No Swelling, No Redness Cardiovascular : No Chest Pain, No SOB, No Dyspnea on Exertion Respiratory : No Cough, No Sputum Gastrointestinal : No Nausea, No Vomiting, No Diarrhea, No abdominal Pain Skin : No Skin Lesions, No rash Neuro : No Weakness, No Numbness, No Dizziness, no Headache All other systems reviewed and are negative PMFSH Past Medical History Attestation statement: The following information was validated with the patient. 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 Migraine with aura Irregular menstrual cycle Iron deficiency anemia Viral meningitis Lower back pain Surgical History No history of previous surgery Family History Family History Father HTN (hypertension) Arthritis Asthma Mother HTN (hypertension) Migraine Diabetes mellitus Maternal Grandfather Liver cancer Maternal Aunt Breast cancer Social History Social History Housing: Apartment Alcohol intake: never Patient Tobacco Use Status: Never used Tobacco Second Hand Smoke Exposure: No Advance Directives: No Advance Directives Information Provided: No service: No Current occupational status: employed Gender identity: Female Cognitive needs: No Hearing needs: No Vision needs: No Physical Exam Vital Signs: Vital Signs: Last Vital Signs Temp 97.4 F 05/18/24 17:41 Pulse 64 05/18/24 17:41 Resp 16 05/18/24 17:41 BP 122/81 05/18/24 17:41 Pulse Ox 97 05/18/24 17:41 O2 Del Method Room Air 05/18/24 17:41 BMI result Body Mass Index 27.3 Appearance: Alert. Oriented X3. No acute distress. Eyes: Pupils equal, round and reactive to light. no photophobia or consensual photophobia. R eye normal vision reported, no hyphema, no subconj hemorrhage, under stain small circular superficial abrasion inf iris < 1cm no leakage of fluids ENT: Pharynx normal. Neck: Normal inspection. Neck supple. CVS: Pulses normal. Respiratory: No respiratory distress. Abdomen: atraumatic Skin: Skin warm and dry. Normal skin color. Extremities: No lower extremity edema. Neuro: Oriented X 3. No motor deficit. No sensory deficit. Course Course Course Narrative: This is an RME: Additional HPI, ROS, PE not included below will be deferred to primary provider. RME assessment and note performed by: Alysha Mcknight PA-C This is a [id number]-female who presents to the ER with complaints of right eye pain x 4 hours. 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 She reports photophobia and pain to the right eye with tearing. Plan: Further ER evaluation needed Medical Decision Making Medical Decision Making MDM Narrative: 34 yo female no change in vision poked in eye by child with nail does not wear contacts - at this time stained eye denies any change in vision has less than 1c m circular superficial abrasion no leakage of fluid, no associated hyphema or subjcon hemorrhage - ointment pain medications referral to eye doctor. Differential Diagnosis Differential Diagnoses: The differential diagnosis associated with the presentation includes corneal abrasions, superficial corneal laceration External Record Review External record reviewed: Office record Prescription Management I considered prescription management with: Pain Medication and Antibiotic Discharge Plan Discharge Clinical Impression: Corneal abrasion Qualifiers: Encounter type: initial encounter Laterality: right Qualified Code(s): S05.01XA - Injury of conjunctiva and corneal abrasion without foreign body, right eye, initial encounter Patient Disposition: Home, Self-Care Instructions: Corneal Abrasion (ED) Additional Instructions: you should see any eye doctor in the next 3 days - return for swelling, loss of infection, fevers, bulging of the eye or any other concerns no contacts Prescriptions: New erythromycin 5 mg/gram (0.5 %) ointment 0.5 inch ophthalmic (eye) BID 7 Days Qty: 3.5 0RF oxycodone 5 mg tablet 5 mg PO Q6H PRN (Reason: pain) Qty: 12 0RF Rx Instructions: Partial Fill upon patient request. No Action metronidazole 0.75 % (37.5mg/5 gram) gel 1 appful vaginal BEDTIME 5 Days Qty: 70 0RF tizanidine 2 mg tablet 2 mg PO Q8H PRN (Reason: muscle spasticity) Qty: 14 0RF ibuprofen 600 mg tablet 600 mg PO Q8H PRN (Reason: pain) Qty: 30 0RF Nexplanon 68 mg implant subdermal Print Language: Burundian
--- NOTE | 2024-05-18 21:38 | MHC.EDTECH ---
Visual acuity done. Bilateral: 20/30 Left: 20/20 Right: 2/200, Pt states she can only see the E RN aware.
[2024-05-18 22:34] VITALS: BP 118/70; PULSE 60; RESP 16; TEMP 36.6; O2SAT 99
[2024-05-18 23:06] VITALS: BP 118/70; PULSE 60; RESP 16; TEMP 36.6; O2SAT 99
[2024-05-18] MEDS: Fluorescein Sodium STRIP 1 STRIP EYE-RIGHT (23:06)
[2024-05-18] MEDS: Tetracaine HCl/PF 0.5% Oph Sol 4 ML DROPS 1 DROP EYE-RIGHT (23:07)
== END 2024-05-18 23:06 | disposition home or self-care (01) ==
PROVIDERS: Emergency Provider Emergency Medicine
DX: S05.01XA Injury of conjunctiva and corneal abrasion without foreign body, right eye, initial encounter (principal); H57.11 Ocular pain, right eye; H53.141 Visual discomfort, right eye; X58.XXXA Exposure to other specified factors, initial encounter; Y93.89 Activity, other specified; Y92.89 Other specified places as the place of occurrence of the external cause; Y99.8 Other external cause status; Z79.899 Other long term (current) drug therapy
CPT/HCPCS: 99283

== ENCOUNTER → 2024-05-19 14:06 | Outpatient (BNVA) | payer OTHER, SELFPAY | PROVIDERS: Visit Provider Physician Assistant Medical | DX: S05.01XA Injury of conjunctiva and corneal abrasion without foreign body, right eye, initial encounter (principal); W50.0XXA Accidental hit or strike by another person, initial encounter | CPT/HCPCS: 92002; 99203 ==

== ENCOUNTER 2024-09-24 10:10 | Emergency (ER) | payer OTHER, SELFPAY ==
--- NOTE | ~2024-09-24 | CT_ITS ---
EXAMINATION: CT HEAD WITHOUT CONTRAST CLINICAL INFORMATION: headache COMPARISON: CT dated January 23, 2024 TECHNIQUE: Contiguous axial imaging was performed from the skull base to vertex without intravenous administration of contrast. This CT examination was performed using dose optimization techniques as appropriate, variously including the following: *Automated exposure control *Adjustment of mA and/or kV according to patient size (this includes techniques or standardized protocols for targeted exams where dose is matched to indication/reason for exam; i.e. extremities or head) *Use of iterative reconstruction technique DLP: 628.94 mGy-cm FINDINGS: No acute intracranial hemorrhage, mass effect, midline shift, hydrocephalus or herniation. Tidwell-white matter differentiation is normal. Posterior cranial fossa contents demonstrated no gross masses or hemorrhage. Sellar/suprasellar region demonstrated no gross masses. Craniocervical junction is intact and normal. No masses within the intraconal or the extraconal compartments of the orbits. No air-fluid levels in the included paranasal sinuses. Tympanic cavities and mastoid air cells are aerated. There is a high riding right internal jugular bulb into the posterior mesotympanum CT/CT head/brain wo IV con IMPRESSION: No acute intracranial hemorrhage or acute brain abnormality by CT. Probable high riding right internal jugular bulb. Electronically signed by: Ross Au MD 09/24/2024 02:10 PM [facility]
--- NOTE | ~2024-09-24 | CT_ITS ---
EXAMINATION: CT CERVICAL SPINE WITHOUT CONTRAST CLINICAL INFORMATION: Persistent headache. COMPARISON: CT dated January 23, 2024. TECHNIQUE: Contiguous axial images through the cervical spine using 3 mm collimation with bone and soft tissue algorithm. Sagittal and coronal reformatted images acquired. This CT examination was performed using dose optimization techniques as appropriate, variously including the following: *Automated exposure control *Adjustment of mA and/or kV according to patient size (this includes techniques or standardized protocols for targeted exams where dose is matched to indication/reason for exam; i.e. extremities or head) *Use of iterative reconstruction technique DLP: 468.31 mGy-cm FINDINGS: Craniocervical junction is intact. C1 is intact. C2 is intact. C3 is intact. C4 is intact. C5 is intact. C6 is intact. C7 is intact. No gross malalignment. Reverse curvature apex at C5. No lytic or blastic lesions. No prevertebral compartment hematoma, mass or fluid collection. Punctate calcification, right palatine tonsil. Tympanic cavities and mastoid cells are aerated. Thyroid gland is not enlarged. There is no dominant nodule. High riding right internal jugular vein into the posterior hypotympanum. Nonspecific prominent cervical lymph nodes. CT/CT cervical spine wo IV con IMPRESSION: No acute fracture or listhesis. Nonspecific prominent cervical lymph nodes. High riding right internal jugular bulb. Fleischner guidelines were followed. Electronically signed by: Ross Au MD 09/24/2024 02:15 PM [facility] [place]
[2024-09-24 10:27] VITALS: BP 103/63; PULSE 67; RESP 16; TEMP 36.8; O2SAT 97; BMI 28.9
--- NOTE | 2024-09-24 12:10 | ED_ITS ---
HPI - General Adult General Chief complaint: Headache Stated complaint: Sharp pain back of head Time Seen by Provider: 09/24/24 11:56 Source: patient Mode of arrival: ambulatory Limitations: no limitations History of Present Illness ED Provider: Jose Painter PA-C HPI narrative: 33-year-old female with pmh of migraine with aura and viral meningitis as a child presents to the ED for posterior headache since yesterday. Patient states no improvement with oral pain meds. Patient denies any recent head trauma. Patient denies any fever, chills, or body aches. Patient denies any slurred speech, dizziness, loss of vision, change in vision, paralysis of extremities, chest pain, abdominal pain, or shorntess of breath. Related Data Home Medications ?Medication ?Instructions ?Recorded ?Confirmed etonogestrel 68 mg subdermal subdermal 01/08/24 01/08/24 implant (Nexplanon) Previous Rx's ?Medication ?Instructions ?Recorded tizanidine 2 mg tablet 2 mg PO Q8H PRN muscle spasticity 08/15/23 #14 tabs metronidazole 0.75 % (37.5 mg/5 1 appful vaginal BEDTIME 5 days 01/10/24 gram) vaginal gel #70 grams erythromycin 5 mg/gram (0.5 %) eye 0.5 inch ophthalmic (eye) BID 7 05/18/24 ointment days #3.5 grams oxycodone 5 mg tablet 5 mg PO Q6H PRN pain #12 tabs 05/18/24 ibuprofen 600 mg tablet 600 mg PO Q8H PRN pain #30 tabs 05/19/24 skgyodcsyx-nzrhzdnjqlxal-qqawyzdg 1 cap PO Q6H PRN pain 3 days #12 09/24/24 50 mg-300 mg-40 mg capsule caps (Fioricet) ketorolac 10 mg tablet 10 mg PO Q6H PRN pain 5 days #20 09/24/24 tabs Allergies Allergy/AdvReac Type Severity Reaction Status Date / Time No Known Allergies Allergy Verified 09/24/24 10:30 Review of Systems 2 Review of Systems: Posterior head Yes all other systems are reviewed and are negative PMFSH Past Medical History Medical History control counseling 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 Migraine with aura Irregular menstrual cycle Iron deficiency anemia Viral meningitis Lower back pain Surgical History No history of previous surgery Family History Family History Father HTN (hypertension) Arthritis Asthma Mother HTN (hypertension) Migraine Diabetes mellitus Maternal Grandfather Liver cancer Maternal Aunt Breast cancer Social History Social History Housing: Apartment Alcohol intake: never Patient Tobacco Use Status: Never used Tobacco Second Hand Smoke Exposure: No service: No Current occupational status: employed Gender identity: Female Cognitive needs: No Hearing needs: No Vision needs: No Physical Exam ED Vital Signs: Vital Signs - 24 hr 09/24/24 10:27 Temperature 98.3 F Pulse Rate 67 Respiratory Rate 16 Blood Pressure 103/63 Pulse Oximetry 97 Oxygen Delivery Method Room Air BMI result Body Mass Index 28.9 Const General: cooperative, healthy appearing, comfortable, no acute distress, well developed, alert, awake and Physically active Orientation/consciousness: patient oriented x3 HENMT Head: Yes normal to inspection, Yes No palpable skull fracture present, Yes normocephalic and Yes atraumatic Head images: 2 1. Positive for tenderness on palpation Eyes General: appearance normal, both eyes and all related structures Neck Neck: Yes normal visual inspection, Yes full ROM, Yes no lymphadenopathy, Yes no meningeal signs, Yes trachea midline, Yes supple, No anterior neck swelling and No tender Chest Chest palpation & inspection: normal inspection of the chest and normal palpation of entire chest wall Resp Effort & Inspection: normal respiratory effort and able to speak in complete sentences Auscultation: clear to auscultation bilaterally Cardio Jugular venous distension: no JVD Heart sounds: S1 normal heart sound present and S2 normal heart sound present GI Inspection: Yes normal to inspection Palpation (GI): Soft to palpation, not firm, nontender, no guarding and not rigid General: No CVA tenderness and Yes no CVA tenderness Back/Spine/Pelvis Back: no CVA tenderness, No CVA tenderness and No back tenderness Skin General skin exam: no rashes or lesions noted, elasticity normal and turgor normal Neuro General: patient oriented x3, gait normal, tone normal, Normal light touch and pain sensation, no meningeal signs, no focal motor deficits, CN's II-XI intact bilaterally and normal sensation to monofilament Extrem General: Yes normal to inspection, Yes full ROM and Yes capillary refill normal Psych Appearance: grossly normal, well kempt and not disheveled Medications Administered Discontinued Medications Generic Name Dose Route Start Last Admin Trade Name Titi PRN Reason Stop Dose Admin Acetaminophen/Butalbital/Caffeine 1 tab 09/24/24 15:24 09/24/24 15:49 Butalb/Acetamin/Caff 50/325/40 Tablet PO 09/24/24 15:25 1 tab ONCE ONE Administration Cyclobenzaprine HCl 10 mg 09/24/24 12:35 09/24/24 13:28 Cyclobenzaprine Hcl 10 Mg Tablet PO 09/24/24 12:36 10 mg ONCE ONE Administration Dexamethasone Sodium Phosphate 8 mg 09/24/24 12:07 09/24/24 13:27 Dexamethasone Sod Phosphate 4 Mg/Ml Vial IVPUSH 09/24/24 12:08 8 mg ONCE ONE Administration Diphenhydramine HCl 50 mg 09/24/24 12:07 09/24/24 13:27 Diphenhydramine Hcl 50 Mg/Ml Vial IVPUSH 09/24/24 12:08 50 mg ONCE ONE Administration Acetaminophen 1,000 mg in 100 mls @ 400 mls/hr 09/24/24 12:07 09/24/24 12:50 Ofirmev IV 09/24/24 12:21 Infused ONCE ONE Infusion Ketorolac Tromethamine 30 mg 09/24/24 14:32 09/24/24 14:43 Ketorolac Tromethamine 30 Mg/Ml Vial IVPUSH 09/24/24 14:33 30 mg ONCE ONE Administration Metoclopramide HCl 10 mg 09/24/24 12:07 09/24/24 13:27 Metoclopramide Hcl 10 Mg/2 Ml Vial IVPUSH 09/24/24 12:08 10 mg ONCE ONE Administration Oxycodone HCl 5 mg 09/24/24 15:36 09/24/24 15:49 Oxycodone Hcl Immed Release 5 Mg Tablet PO 09/24/24 15:37 5 mg ONCE ONE Administration Medical Decision Making Medical Decision Making MDM Narrative: 33-year-old female presents to ED for posterior headache since yesterday without any trauma. Patient states 1st time having such headache. Patient denies any fever, chills, body aches. We will do head CT scan cervical spine CT scan labs ordered. IV Tylenol, dexamethasone, Benadryl, and Reglan given to treat migraines. 3:26pm: Head CT scan cervical CT scan normal. Patient states hitting improve from a 10 to a 5. Patient has complete range of motion of neck. Negative for any signs of nuchal rigidity. Meningeal signs are negative. Negative white blood cell count elevation. Patient is afebrile non tachy. Presently not suspecting meningitis. Not suspecting encephalitits. Patient denies any recent chiropractor network or musculoskeletal activities to indicate possible carotid artery dissection Case discussed with supervising attending Dr. Morris who agrees patient no need for LP not suspect a meningitis. Thirty indicates more muscular headache versus migraine. 4:36pm: Headache now down to a 2. Was discussed with patient that she should follow up outpatient with Neurology. Patient explained worrisome signs and informed to return to the ED immediately. Presently not suspecting meningitis, brain bleed, encephalitis, car dissection, skull fracture, temporal arteritis, stroek, posterior stroke, or any other life-threatening etiologies. NIH score 0. Patient given copy of the imaging for follow-up with high internal jugular bulb. Differential Diagnosis Differential Diagnoses: The differential diagnosis associated with the presentation includes (Migraine, brain bleed) Admission/Observation Consideration of admission/observation: Escalation of care including admission/observation considered Lab Data MDM Lab Attestation statement: I reviewed the patient's lab results. 09/24/24 12:19 09/24/24 12:19 Labs: Lab Results 09/24/24 09/24/24 09/24/24 Range/Units 12:19 12:22 15:32 WBC 7.7 (4.8-10.8) X10*3/uL RBC 4.28 (4.20-5.50) X10*6/uL Hgb 11.9 L (12.0-16.0) g/dl Hct 35.2 L (37.0-47.0) % MCV 82.2 (80.0-98.0) fL MCH 27.8 (27.0-33.0) pg MCHC 33.8 (31.0-35.0) g/dl RDW 12.5 (11.0-16.0) % Plt Count 239 (160-400) X10*3/uL MPV 11.4 (9.4-12.3) fL Immature Gran % (Auto) 0.3 (0.0-0.4) % Neut % (Auto) 73.6 H (45-73) % Lymph % (Auto) 18.7 L (20-40) % Amelia % (Auto) 6.5 (2-11) % Eos % (Auto) 0.6 (0-4) % Baso % (Auto) 0.3 (0-2) % Lymph # (Auto) 1.4 (1.2-4.9) X10*3/uL Amelia # (Auto) 0.5 (0.1-1.2) X10*3/uL Eos # (Auto) 0.1 (0.0-0.4) X10*3/uL Baso # (Auto) 0.0 (0.0-0.2) X10*3/uL Abs Immat Gran (auto) 0.02 (0.00-0.03) X10*3/uL Absolute Neuts (auto) 5.7 (2.0-8.3) x10*3/uL Absolute Nucleated RBC 0.000 (0.0-0.012) X10*3/uL Nucleated RBC % (auto) 0.0 (0.0-0.2) /100WBC Sodium 141 (135-145) mmol/L Potassium 3.8 (3.3-5.1) mmol/L Chloride 107 (96-108) mmol/L Carbon Dioxide 29 (22-29) mmol/L Anion Gap 9 L (12-20) BUN 15 (9-16) mg/dL Creatinine 0.72 (0.5-1.4) mg/dL Estim Creat Clear Calc 98.9 Estimated GFR > 60 Random Glucose 92 (60-115) mg/dL Calcium 8.9 (8.4-10.2) mg/dL Total Bilirubin 1.3 H (0.0-1.0) mg/dL AST 16 (5-31) U/L ALT 20 (0-31) U/L Alkaline Phosphatase 75 (39-117) U/L Total Protein 6.9 (6.5-8.0) g/dL Albumin 4.0 (3.5-5.0) g/dL Beta HCG, Quant < 2 mIU/mL Influenza Type A (PCR) NEGATIVE (Negative) Influenza Type B (PCR) NEGATIVE (Negative) RSV RNA Qual (PCR) NEGATIVE (Negative) SARS-CoV-2 RNA (RT-PCR) NEGATIVE (Negative) S. pyogenes GrpA TERRY Negative (Negative) Independent Interpretation I performed an independent interpretation of an: CT Scan Radiology Impression Discussion of test interpretation with radiology: I have reviewed the radiologist's reading. Independent Historian Clinical information obtained from an independent historian. History obtained from or confirmed by: Other (Patient) External Record Review External record reviewed: Other (prior visits) Prescription Management I considered prescription management with: Pain Medication Discharge Plan Discharge Clinical Impression: Headache, Migraine Patient Disposition: Home, Self-Care Instructions: Migraine Headache (ED), Acute Headache (ED) Additional Instructions: Your blood work and CT scan came back normal. Head CT scan does show high riding right internal jugular bulb. Recommend follow-up with primary care provider and neurology. Return to the ED immediately for any worsening headache, slurred speech, facial droop, paralysis of extremities, nausea, vomiting, fever, chills, neck stiffness, rash, any other concerning symptoms. CT/CT head/brain wo IV con IMPRESSION: No acute intracranial hemorrhage or acute brain abnormality by CT. Probable high riding right internal jugular bulb. Electronically signed by: Ross Au MD 09/24/2024 02:[address]/CT cervical spine wo IV con IMPRESSION: No acute fracture or listhesis. Nonspecific prominent cervical lymph nodes. High riding right internal jugular bulb. Fleischner guidelines were followed. Electronically signed by: Ross Au MD 09/24/2024 02:15 PM EST RP Prescriptions: New qmcnuzduta-hsatjggsoqrhq-xxxa [Fioricet] 50-300-40 mg capsule 1 cap PO Q6H PRN (Reason: pain) 3 Days Qty: 12 0RF ketorolac 10 mg tablet 10 mg PO Q6H PRN (Reason: pain) 5 Days Qty: 20 0RF Rx Instructions: Patient received Toradol 30 IV in the ED No Action metronidazole 0.75 % (37.5mg/5 gram) gel 1 appful vaginal BEDTIME 5 Days Qty: 70 0RF erythromycin 5 mg/gram (0.5 %) ointment 0.5 inch ophthalmic (eye) BID 7 Days Qty: 3.5 0RF oxycodone 5 mg tablet 5 mg PO Q6H PRN (Reason: pain) Qty: 12 0RF Rx Instructions: Partial Fill upon patient request. tizanidine 2 mg tablet 2 mg PO Q8H PRN (Reason: muscle spasticity) Qty: 14 0RF Nexplanon 68 mg implant subdermal ibuprofen 600 mg tablet 600 mg PO Q8H PRN (Reason: pain) Qty: 30 0RF Referrals: Misael Paulson MD [Physician] - (Headache, migraine, high-riding internal jugular bulb) Stand Alone Forms: Work/School Release Interventions: ED Discharge Assessment Last Done: 09/24/24 16:58 Discharge Date/Time: 09/24/24 16:59 Print Language: Lithuanian
[2024-09-24 12:25] LABS: MANUAL DIFF FLAG NO
[2024-09-24 12:29] LABS: Basophils Percent Auto 0.3 % (0-2); Eosinophils Absolute Auto 0.1 X10*3/uL (0.0-0.4); Eosinophils Percent Auto 0.6 % (0-4); Hematocrit 35.2 % (37.0-47.0); Hemoglobin 11.9 g/dl (12.0-16.0); Imm Gran Abs Auto 0.02 X10*3/uL (0.00-0.03); Imm Gran Pct Auto 0.3 % (0.0-0.4); Lymphocytes Absolute Auto 1.4 X10*3/uL (1.2-4.9); Lymphocytes Percent Auto 18.7 % (20-40); Mean Corpuscular HGB Conc 33.8 g/dl (31.0-35.0); Mean Corpuscular Hemoglobin 27.8 pg (27.0-33.0); Mean Corpuscular Volume 82.2 fL (80.0-98.0); Mean Platelet Volume 11.4 fL (9.4-12.3); Monocytes Absolute Auto 0.5 X10*3/uL (0.1-1.2); Monocytes Percent Auto 6.5 % (2-11); Neutrophils Absolute Auto 5.7 x10*3/uL (2.0-8.3); Neutrophils Percent Auto 73.6 % (45-73); Platelet Count 239 X10*3/uL (160-400); Red Blood Count 4.28 X10*6/uL (4.20-5.50); Red Cell Distribution Width 12.5 % (11.0-16.0); White Blood Count 7.7 X10*3/uL (4.8-10.8)
[2024-09-24] MEDS: Acetaminophen 1,000 MG/100 ML PIGGYBACK 400 MG IV (12:35)
[2024-09-24 12:49] LABS: Alanine Aminotransferase 20 U/L (0-31); Anion Gap 9 (12-20); Aspartate Amino Transferase 16 U/L (5-31); Bilirubin Total 1.3 mg/dL (0.0-1.0); Blood Urea Nitrogen 15 mg/dL (9-16); Calcium 8.9 mg/dL (8.4-10.2); Carbon Dioxide 29 mmol/L (22-29); Chloride 107 mmol/L (96-108); Creatinine Clr Calc Pharmacy 98.9; Estimated Glomerular Filt Rate > 60; Glucose Random 92 mg/dL (60-115); Potassium 3.8 mmol/L (3.3-5.1); Sodium 141 mmol/L (135-145); Total Protein 6.9 g/dL (6.5-8.0)
[2024-09-24 12:50] LABS: Alkaline Phosphatase 75 U/L (39-117)
[2024-09-24 12:54] LABS: HCG Quantitative < 2 mIU/mL
[2024-09-24 13:08] LABS: Influenza A PCR NEGATIVE (Negative); Influenza B PCR NEGATIVE (Negative); Resp Syncy Virus RNA Qual PCR NEGATIVE (Negative); SARS COV2 PCR INHOUSE NEGATIVE (Negative)
[2024-09-24] MEDS: diphenhydrAMINE HCL 50 MG/ML VIAL IVPUSH (13:27)
[2024-09-24] MEDS: Metoclopramide HCl 10 MG/2 ML VIAL IVPUSH (13:27)
[2024-09-24] MEDS: dexAMETHasone sod phosphate 4 MG/ML VIAL 8 MG IVPUSH (13:27)
[2024-09-24] MEDS: Cyclobenzaprine HCl 10 MG TABLET PO (13:28)
[2024-09-24] MEDS: Ketorolac Tromethamine 30 MG/ML VIAL IVPUSH (14:43)
[2024-09-24 15:45] LABS: IDNOW Serial# 58CA691E; Strep A Nucleic Acid Negative (Negative)
[2024-09-24] MEDS: Butalb/Acetamin/Caff 50/325/40 TABLET 1 TAB PO (15:49)
[2024-09-24] MEDS: oxyCODONE HCl Immed Release 5 MG TABLET PO (15:49)
[2024-09-24 16:58] VITALS: BP 103/63; PULSE 67; RESP 16; TEMP 36.8; O2SAT 97
== END 2024-09-24 16:59 | disposition home or self-care (01) ==
PROVIDERS: Physician Assistant; Emergency Provider Student in an Organized Health Care Education/Training Program
DX: G43.909 Migraine, unspecified, not intractable, without status migrainosus (principal); M54.2 Cervicalgia; Z79.899 Other long term (current) drug therapy; Z03.818 Encounter for observation for suspected exposure to other biological agents ruled out
CPT/HCPCS: 0241U; 70450; 72125; 80053; 84702; 85025; 87651; 96374; 96375; 99283; 99284; J0131; J1100; J1200; J1885; J2765

== ENCOUNTER → 2024-09-24 12:05 | Outpatient (BNV) | payer OTHER, SELFPAY | PROVIDERS: Emergency Provider Student in an Organized Health Care Education/Training Program; Visit Provider Radiology Diagnostic Radiology | DX: R51.9 Headache, unspecified (principal) | CPT/HCPCS: 70450; 72125 ==

== ENCOUNTER 2024-09-29 10:23 | Outpatient (AMB) | payer OTHER, SELFPAY ==
--- NOTE | 2024-09-29 10:26 | A.OFFPC_ITS ---
Vital Signs 09/29/24 10:27 Height 5 ft 1 in Weight 138 lb 4 oz BMI 26.1 BP 130/60 Blood Pressure Location Lt brachial Position Sitting Pulse 69 Pulse Source Pulse Oximeter Pulse Oximetry (%) 96 Oxygen Delivery Method Room Air Intake Visit Reasons: [facility] [place] Sharp pain back of head Intake Note: Patient is here to follow-up after a visit the emergency department at [facility] [place] on 09/24/24 Fire Patroller Required: No Chronic Care Nurse: Not Required per policy Accompanied by: Self / Same As Patient Allergies No Known Allergies Allergy (Verified 10/05/24 16:07) Medication List - Last Reconciled 10/05/24 by Fredy Fraser MD etonogestrel (Nexplanon) subdermal ibuprofen 600 mg PO Q8H PRN ketorolac 10 mg PO Q6H PRN 5 days tizanidine 2 mg PO Q8H PRN Tobacco use date assessed: 09/29/24 Dental Screening Dental Screen Date: 09/29/24 Did you have a dental visit in the last 12 months?: Yes Did you have a dental problem in the last 6 months where you did not have access to dental care?: No Was dental information given to patient?: Patient has dentist HPI [facility] [place] Sharp pain back of head HPI Details 34-year-old female presents to the [facility] for a follow-up after recent visit to the emergency room. Patient's symptoms are better. Her headaches symp toms have improved. No nausea or vomiting. No double vision. 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 Migraine with aura Irregular menstrual cycle Iron deficiency anemia Viral meningitis Lower back pain Surgical History No history of previous surgery Family History Father HTN (hypertension) Arthritis Asthma Mother HTN (hypertension) Migraine Diabetes mellitus Maternal Grandfather Liver cancer Maternal Aunt Breast cancer Social History Housing: Apartment Alcohol intake: never Patient Tobacco Use Status: Never used Tobacco e-Cigarette/Vaping Use: Never Used Second Hand Smoke Exposure: No service: No Current occupational status: employed Gender identity: Female Cognitive needs: No Hearing needs: No Vision needs: No Female Reproductive History Menstrual Age of Menarche: 10 Questionnaire PHQ-9 Over the last 2 weeks, how often have you been bothered by any of the following problems? 1. Little interest or pleasure in doing things: not at all 2. Feeling down, depressed, or hopeless: not at all 3. Trouble falling or staying asleep, or sleeping too much: not at all 4. Feeling tired or having little energy: not at all 5. Poor appetite or overeating: not at all 6. Feeling bad about yourself - or that you are a failure or have let yourself or your family down: not at all 7. Trouble concentrating on things, such as reading the newspaper or watching television: not at all 8. Moving or speaking so slowly that other people could have noticed. Or the opposite - being so fidgety or restless that you have been moving around a lot more than usual: not at all 9. Thoughts that you would be better off or of hurting yourself in some way: not at all Total score: 0 Depression Screening Interpretation: Negative Depression Screening Done: Yes Source: Developed by Drs. Fredy Cruz, Mariaa Chapman, Ezequiel Sadler and colleagues, with an educational dee from [employer]. Thrive Questionnaire Date Thrive assessed: 09/29/24 I am a: Patient What is your living situation today?: I have a steady place to live Within the past 12 months, did the food you bought not last and you didn't have the money to get more?: Never true Within the past 12 months, did you worry whether your food would run out before you got money to buy more?: Never true Do you have trouble paying for medicines?: No Do you have trouble getting transportation to medical appointments?: No Do you have trouble paying your heating and electricity bill?: No Do you have trouble taking care of your child, family member or friend?: No Do you have trouble with day-to-day activities such as bathing, preparing meals, shopping, managing finances, etc.?: No Are you currently unemployed and looking for a job?: No Are you interested in more education?: No Currently or been in a relationship where the following occur: No concerns reported THRIVE Score: 0 AUDIT C Alcohol Use Questionnaire (AUDIT-C) 1. How often do you have a drink containing alcohol?: Never Total Score: 0 EMMA-7 AMB Questionnaire EMMA-7 Date EMMA - 7 assessed: 09/29/24 Feeling nervous, anxious, or on edge: 0 = Not at all Not being able to stop or control worryin = Not at all Worrying too much about different things: 0 = Not at all Trouble relaxin = Not at all Being so restless that it is hard to sit still: 0 = Not at all Becoming easily annoyed or irritable: 0 = Not at all Feeling afraid as if something awful might happen: 0 = Not at all Total EMMA-7 score (0-4 normal; 5-9 mild; 10-14 moderate; 15-21 severe): 0 Source: Developed by Drs. Fredy Cruz, Mariaa Chapman, Ezequiel Sadler and colleagues, with an educational dee from [employer]. Physical exam (Primary Care) Vital Signs: Last Vital Signs Pulse 69 09/29/24 10:27 BP 130/60 09/29/24 10:27 Pulse Ox 96 09/29/24 10:27 Oxygen Delivery Method Room Air 09/29/24 10:27 BMI result Body Mass Index 26.1 Tobacco/Smoking Status: Tobacco use Status Tobacco use date assessed 09/29/24 09/29/24 10:36 Patient Tobacco Use Status Never used Tobacco 09/29/24 10:36 e-Cigarette/Vaping Use Never Used 09/29/24 10:36 PHQ-9: PHQ-9 Score PHQ-9: Total score 0 09/29/24 12:58 Depression Screening Interpretation: Negative Thrive Assessment: Date of Thrive Assessment Date Thrive assessed 09/29/24 09/29/24 10:36 Currently or been in a relationship where the following occur: No concerns reported Const General: cooperative and healthy appearing Nutritional Appearance: well nourished Orientation/consciousness: patient oriented x3 Limitations: no limitations HENMT Head: Yes normal to inspection Eyes General: appearance normal, both eyes and all related structures Neck Neck: Yes normal visual inspection Chest Chest palpation & inspection: normal palpation of entire chest wall Resp Effort & Inspection: normal respiratory effort Neuro General: patient oriented x3 Coding Level of Care Code Est Pt Level 3 (21688) Complex EM visit Add On G2211 Diagnoses Contusion T14.8XXA Assessment & Plan Assessment & Plan (1) Contusion: Code(s): T14.8XXA - Other injury of unspecified body region, initial encounter Plan: ER visit reviewed. Continue current medications. Reassurance. Medications: Refilled tizanidine 2 mg PO Q8H PRN 14 tabs 0RF muscle spasticity M54.5 - Low back pain ibuprofen 600 mg PO Q8H PRN 30 tabs 0RF pain M54.5 - Low back pain
[2024-09-29 10:27] VITALS: BP 130/60; PULSE 69; O2SAT 96; BMI 26.1
== END 2024-09-29 11:23 | disposition home or self-care (01) ==
PROVIDERS: Visit Provider Internal Medicine
DX: T14.8XXA Other injury of unspecified body region, initial encounter (principal)

== ENCOUNTER → 2024-09-29 10:23 | Outpatient (BNVA) | payer OTHER, SELFPAY | PROVIDERS: Visit Provider Internal Medicine | DX: R51.9 Headache, unspecified (principal) | CPT/HCPCS: 96127; 99212 ==